=== PATIENT | female | born 1970 | race Caucasian/White ===

== ENCOUNTER → 2019-01-09 09:24 | Outpatient (CLI) | payer OTHER, SELFPAY ==
--- NOTE | 2019-01-09 09:32 | US_ITS ---
STUDY: THYROID ULTRASOUND REASON FOR EXAM: Female, 48 years old. Abnormal TSH TECHNIQUE: Ultrasound evaluation of the thyroid was performed with real-time and static scott-scale imaging. COMPARISON: None. FINDINGS: RIGHT LOBE: The right lobe of the thyroid gland measures 5.3 x 1.5 x 1.5 cm. There is a homogeneous echotexture. Is a 4 pole complex cystic nodules with solid component measuring 4 x 2 x 3 mm. Another complex cystic nodule with solid component is noted in the medial lower pole measuring 4 x 3 x 3 mm. LEFT LOBE: The left lobe of the thyroid gland measures 4.8 x 1.4 x 1.3 cm. There is a homogeneous echotexture. There are no demonstrated solid, cystic or complex lesions. ISTHMUS: The isthmus measures 4 mm . The regional lymph nodes are normal. US/Thyroid IMPRESSION: Small complex right thyroid nodules. Electronically Signed: Tian Goodman DO at 20:03 EDT Tel [phone], Service support ,
== END ==
PROVIDERS: Family Provider Internal Medicine; PCP Internal Medicine; Referring Provider Internal Medicine; Visit Provider Internal Medicine
DX: R79.89 Other specified abnormal findings of blood chemistry (principal)
CPT/HCPCS: 76536

== ENCOUNTER → 2019-01-28 | Outpatient (CLI) | payer OTHER, SELFPAY ==
--- NOTE | 2019-01-28 09:10 | NM_ITS ---
CLINICAL: 48-year-old female with reported history of thyroid nodularity and apparent clinical thyrotoxicosis. I-123 THYROID UPTAKE and SCAN COMPARISON: Thyroid ultrasound report 01/09/2019 FINDINGS: The patient was administered a 307 uCi I-123 capsule by mouth. The 4-hour I-123 radioactive iodine thyroidal uptake was calculated to be 1.6 % (normal 5 to 25 %). The 24-hour I-123 radioactive iodine thyroidal uptake was calculated to be 0.9 % (normal 5 to 40 %). The I-123 thyroid scan demonstrates minimal radiopharmaceutical concentration noted in the anterior neck, thyroid bed commensurate with the calculated iodine uptake values. NM/Thyroid Uptake Single or Mult IMPRESSION: 1. ABNORMAL DECREASED 4- and 24-hour I-123 radioactive iodine thyroidal uptakes. 2. The I-123 thyroid scan in conjunction with a calculated iodine uptake values and apparent clinical hyperthyroidism is most consistent with the injurious phase of subacute or potentially chronic lymphocytic thyroiditis. (Ivonne et al, Endocrinol Rev 1: 411, 1980). Electronically Signed: Jonathan Chacon DO at 23:03 EDT Tel , Service support ,
== END | disposition home or self-care (01) ==
LOC: NM 08:38
PROVIDERS: Family Provider Internal Medicine; PCP Internal Medicine; Referring Provider Internal Medicine Endocrinology, Diabetes & Metabolism; Visit Provider Internal Medicine Endocrinology, Diabetes & Metabolism
DX: E05.00 Thyrotoxicosis with diffuse goiter without thyrotoxic crisis or storm (principal)
CPT/HCPCS: 78012; A9516

== ENCOUNTER → 2019-02-20 13:48 | Outpatient (CLI) | payer OTHER, SELFPAY ==
--- NOTE | 2019-02-20 13:53 | ECHOD_ITS ---
Reason For Study: HEART MURMUR Procedure This was a 2D Doppler, Color Flow transthoracic echocardiogram. Exam performed in department. Left Ventricle Normal size and thickness. Left ventricular systolic function is normal. The estimated ejection fraction is 65 %. No evidence for diastolic dysfunction. No regional wall motion abnormalities noted. Right Ventricle Normal RV size. Normal systolic function. Atria Normal left atrium. Normal right atrium. No doppler evidence for ASD. Mitral Valve There is no mitral valve stenosis. No mitral valve insufficiency. Tricuspid Valve There is no tricuspid stenosis. Trivial tricuspid valve insufficiency. Normal pulmonary artery pressure. Aortic Valve Trisinus/trileaflet aortic valve. There is no aortic stenosis. No aortic valve insufficiency. Pulmonic Valve There is no pulmonic valvular stenosis. No pulmonic valve insufficiency. Great Vessels Normal aortic root. Pericardium/Pleural No pericardial effusion. MMode/2D Measurements & Calculations LVIDd: 4.1 cm IVSd: 0.70 cm Ao root diam: 2.6 cm LVIDs: 2.8 cm LVPWd: 0.84 cm RVDd: 3.1 cm FS: 31.9 % LAV(MOD-bp): 27.1 ml LVAd ap4: 24.2 cm2 SV(MOD-sp4): 41.0 ml LAV(MOD-bp) Indexed: 16.2 ml/m2 EDV(MOD-sp4): 69.7 ml LAV(MOD-sp2): 28.0 ml EDV(sp4-el): 71.5 ml LAV(MOD-sp4): 23.9 ml LVAs ap4: 13.6 cm2 ESV(MOD-sp4): 28.7 ml ESV(sp4-el): 27.4 ml EF(MOD-sp4): 58.8 % EF(sp4-el): 61.7 % SV(sp4-el): 44.1 ml LA A4 area: 11.3 cm2 LA dimension(2D): 2.5 cm RA A4 area: 10.3 cm2 Time Measurements MV dec time: 0.20 sec Doppler Measurements & Calculations MV E max martín: 80.1 cm/sec Lat Peak E' Amrtín: 14.3 cm/sec Med Peak E' Martín: 9.4 cm/sec MV A max martín: 72.5 cm/sec E/E' lat: 5.6 E/E' med: 8.5 MV E/A: 1.1 Ao V2 max: 148.6 cm/sec LV V1 max: 113.4 cm/sec PA V2 max: 119.6 cm/sec Ao max P.8 mmHg LV V1 max P.1 mmHg TR max martín: 242.4 cm/sec TR max P.5 mmHg Interpretation Summary Left ventricular systolic function is normal. The estimated ejection fraction is 65 %. No evidence for diastolic dysfunction. Trivial tricuspid valve insufficiency. Normal pulmonary artery pressure. Ordering Physician: Chrissy Clements Referring Physician: Chrissy Clements Performed By: Kymberly Bradley RDCS
== END ==
PROVIDERS: Family Provider Internal Medicine; PCP Internal Medicine; Referring Provider Internal Medicine; Visit Provider Internal Medicine
DX: R01.1 Cardiac murmur, unspecified (principal)
CPT/HCPCS: 93306

== ENCOUNTER → 2019-05-23 16:10 | Outpatient (CLI) | payer OTHER, SELFPAY | PROVIDERS: Family Provider Internal Medicine; PCP Internal Medicine; Referring Provider Otolaryngology Otolaryngology/Facial Plastic Surgery; Visit Provider Otolaryngology Otolaryngology/Facial Plastic Surgery | DX: J02.9 Acute pharyngitis, unspecified (principal) | CPT/HCPCS: 87070 ==

== ENCOUNTER → 2019-07-01 11:23 | Outpatient (CLI) | payer OTHER, SELFPAY ==
--- NOTE | 2019-07-01 11:29 | US_ITS ---
STUDY: THYROID ULTRASOUND REASON FOR EXAM: Female, 48 years old. Thyroid nodules TECHNIQUE: Ultrasound evaluation of the thyroid was performed with real-time and static scott-scale imaging. COMPARISON: 01/09/2019 FINDINGS: RIGHT LOBE: The right lobe of the thyroid gland measures 4.9 x 1.1 x 1.0 cm. There is a homogeneous echotexture. There is a 0.4 x 0.3 cm solid and cystic nodule in the upper pole of the right lobe and a 0.5 x 0.4 cm solid nodule in the lower pole. These are stable when compared with the prior exam. There are no new nodules identified. LEFT LOBE: The left lobe of the thyroid gland measures 4.5 x 1.2 x 0.9 cm. There is a homogeneous echotexture. There are no demonstrated solid, cystic or complex lesions. ISTHMUS: The isthmus measures 4 mm. The regional lymph nodes are normal. US/Thyroid IMPRESSION: Stable subcentimeter nodules in the right lobe of the thyroid. Otherwise, unremarkable exam. Electronically Signed: Heriberto Benitez, at 15:04 EST Tel , Service support ,
== END ==
PROVIDERS: Family Provider Internal Medicine; PCP Internal Medicine; Referring Provider Internal Medicine; Visit Provider Internal Medicine
DX: E04.1 Nontoxic single thyroid nodule (principal)
CPT/HCPCS: 76536

== ENCOUNTER → 2019-07-15 12:23 | Outpatient (CLI) | payer OTHER, SELFPAY ==
--- NOTE | 2019-07-15 12:27 | US_ITS ---
STUDY: RENAL ULTRASOUND - COMPLETE REASON FOR EXAM: Female, 48 years old. Hematuria, history of stones TECHNIQUE: Ultrasound evaluation of the kidneys was performed with real-time and static hernandez-scale imaging. COMPARISON: None. FINDINGS: RIGHT KIDNEY: Normal location of the right kidney, which is normal in size. The right kidney measures 11.3 x 5.3 x 3.9 cm. There is a normal cortex of the right kidney. The renal cortex measures 1.2 cm. There is no right renal mass or cyst. There is a 2 mm right renal calculus. There is a mild right hydronephrosis. DISTAL RIGHT URETER: There is non-visualization of the distal right ureter. There is no demonstrated right ureterovesical junction calculus. There is a visualized right ureteral jet. LEFT KIDNEY: Normal location of the left kidney, which is normal in size. The left kidney measures 12.8 x 4.5 x 4.1 cm. There is a normal cortex of the left kidney. The renal cortex measures 1.6 cm. There is a 7 x 9 x 8 mm cyst. There is a 4 mm nonobstructing calculus. There is no left hydronephrosis. DISTAL LEFT URETER: There is non-visualization of the distal left ureter. There is no demonstrated left ureterovesical junction calculus. There is a visualized left ureteral jet. BLADDER: The distended urinary bladder has a volume of 752 ml. . Urinary bladder wall thickness is 3 mm. There is no demonstrated mass within the urinary bladder. There are no demonstrated bladder calculi. US/Kidney and Bladder IMPRESSION: Nonobstructing bilateral nephrolithiasis. Subcentimeter left renal cyst. Mild right hydronephrosis. Electronically Signed: Nicholas Russell MD at 21:59 EST , Service support ,
== END ==
PROVIDERS: Family Provider Internal Medicine; PCP Internal Medicine; Referring Provider Nurse Practitioner; Visit Provider Nurse Practitioner
DX: R31.9 Hematuria, unspecified (principal)
CPT/HCPCS: 76770

== ENCOUNTER → 2019-08-04 06:57 | Outpatient (CLI) | payer OTHER, SELFPAY ==
--- NOTE | 2019-08-04 06:59 | CT_ITS ---
STUDY: CT ABDOMEN AND PELVIS WITH AND WITHOUT CONTRAST REASON FOR EXAM: Female, 48 years old. INTERMITTENT RLQ PAIN X7 WEEKS -- KNOWN KIDNEY STONES -- RIGHT KIDNEY SWOLLEN-PER PT -- HX-DIVERTICULITIS RADIATION DOSAGE (If Supplied By Facility): CTDIvol = ( 10.23 ) mGy, DLP = ( 931.93 ) mGycm TECHNIQUE: Transaxial images were obtained from the dome of the diaphragm to the symphysis pubis without oral contrast. 100cc isovue 300 was administered. Sagittal and coronal images were reconstructed. Individualized dose optimization techniques were used for this CT. COMPARISON: 06/22/2017 FINDINGS: The visualized lung bases are unremarkable. The visualized portions of the heart are within normal limits. Normal liver. Normal gallbladder and extrahepatic biliary system. Normal spleen. Normal pancreas. Normal bilateral adrenal glands. Bilateral nonobstructing renal stones. No hydronephrosis, ureteral stone, or ureteral dilatation. Normal visualized stomach. Normal small intestine. There are multiple colonic diverticula consistent with diverticulosis. The appendix is visualized and appears normal. Normal abdominal aorta. Normal inferior vena cava. Normal retroperitoneum. Normal urinary bladder. Normal abdominal wall. Normal osseous structures. CT/CT Abd/Pelvis W/WO Contrast IMPRESSION: Bilateral nonobstructing renal stones. Electronically Signed: Jonathan Knight MD at 16:51 EST Tel , Service support ,
== END ==
PROVIDERS: Family Provider Internal Medicine; PCP Internal Medicine; Referring Provider Nurse Practitioner Adult Health; Visit Provider Nurse Practitioner Adult Health
DX: R31.0 Gross hematuria (principal)
CPT/HCPCS: 74178; Q9967

== ENCOUNTER → 2019-10-25 08:58 | Outpatient (CLI) | payer OTHER, SELFPAY ==
--- NOTE | 2019-10-25 06:13 | CT_ITS ---
STUDY: CT MAXILLOFACIAL SINUSES REASON FOR EXAM: Female, 49 years old. UPPER TEETH SENSITIVITY, BILAT FACIAL PRESSURE/PAIN, MERRITT, HAD SHINGLES IN EAR, FEBRUARY 2019 HAD JAW SURG RADIATION DOSAGE (If Supplied By Facility): CTDIvol = ( 33.06 ) mGy, DLP = ( 784.26 ) mGycm TECHNIQUE: The patient was scanned in a multi detector CT scanner. High resolution axial imaging was performed without the administration of intravenous contrast material. Sagittal and coronal images were reconstructed. Individualized dose optimization techniques were used for this CT. COMPARISON: None. FINDINGS: FRONTAL SINUSES: Normal aeration, without mucosal inflammatory disease. ETHMOIDAL SINUSES: Normal aeration, without mucosal inflammatory disease. MAXILLARY SINUSES: Normal aeration, without mucosal inflammatory disease. SPHENOIDAL SINUSES: Normal aeration, without mucosal inflammatory disease. There is patency of the bilateral maxillary infundibuli with normal uncinate processes, ethmoid bullae, and hiatus semilunaris. Normal bilateral middle turbinates. Normal bilateral inferior turbinates. Normal midline nasal septum. There is patency of the bilateral nasal airways. The visualized osseous structures are normal. The visualized bilateral orbital contents are normal. CT/Sinus/Facial Bone IMPRESSION: Normal CT examination of the maxillofacial sinuses. Electronically Signed: Tian Goodman DO at 11:27 EDT Tel [phone], Service support ,
== END ==
PROVIDERS: PCP Internal Medicine; Referring Provider Otolaryngology; Visit Provider Otolaryngology
DX: J32.9 Chronic sinusitis, unspecified (principal)
CPT/HCPCS: 70486

== ENCOUNTER → 2020-04-22 14:16 | Outpatient (CLI) | payer OTHER, SELFPAY ==
--- NOTE | 2020-04-22 14:21 | US_ITS ---
STUDY: ULTRASOUND OF THE FEMALE PELVIS - LIMITED REASON FOR EXAM: Female, 49 years old RLQ PAIN TECHNIQUE: Transabdominal real-time exam with scott scale image documentation. TECHNICAL QUALITY: Adequate. Abdomen and pelvic CT exam of 08/04/2019 COMPARISON: None. FINDINGS: Status post hysterectomy. The right ovary measures 2.6 x 1.4 x 2.1 cm. There is no right ovarian cyst or ovarian mass. There is no visualized right adnexal mass or complex lesion. There is normal arterial and normal venous vascularity. The left ovary measures 2.3 x 2.1 x 1.9 cm. There is no left ovarian cyst or ovarian mass. There is no visualized left adnexal mass or complex lesion. There is normal arterial and normal venous vascularity. There is no fluid in the cul-de-sac. US/Transvaginal Non- IMPRESSION: Normal ovaries bilaterally without adnexal masses or free fluid of the pelvis. Status post hysterectomy. Electronically Signed: Lizet Issa MD at 23:58 EDT , Service support ,
== END ==
PROVIDERS: PCP Internal Medicine; Referring Provider Nurse Practitioner; Visit Provider Nurse Practitioner
DX: R10.31 Right lower quadrant pain (principal)
CPT/HCPCS: 76830; 93976

== ENCOUNTER → 2020-05-15 10:18 | Outpatient (CLI) | payer OTHER, SELFPAY ==
--- NOTE | 2020-05-15 10:29 | US_ITS ---
STUDY: THYROID ULTRASOUND REASON FOR EXAM: Female, 49 years old. NODULES TECHNIQUE: Ultrasound evaluation of the thyroid was performed with real-time and static scott-scale imaging. COMPARISON: None. FINDINGS: RIGHT LOBE: The right lobe of the thyroid gland measures 5.2 x 1.1 x 1.3 cm. There is a homogeneous echotexture. Anechoic cyst of the right thyroid lobe measures 4 mm. Solid and cystic nodule of the inferior right thyroid lobe measures 5 mm, stable. LEFT LOBE: The left lobe of the thyroid gland measures 4.8 x 1.3 x 1.1 cm. There is a homogeneous echotexture. There are no demonstrated solid, cystic or complex lesions. ISTHMUS: The isthmus measures 2 mm. The regional lymph nodes are normal. US/Thyroid IMPRESSION: 1. No new or enlarging thyroid nodule. 2. Stable subcentimeter nodules/cysts of the right thyroid lobe. Electronically Signed: Torsten Izquierdo MD (Brooks) at 13:20 EDT , Service support ,
== END ==
LOC: OPUS 10:21 → US 10:23
PROVIDERS: PCP Internal Medicine; Referring Provider Nurse Practitioner; Visit Provider Nurse Practitioner
DX: E04.1 Nontoxic single thyroid nodule (principal); R10.31 Right lower quadrant pain
CPT/HCPCS: 76536

== ENCOUNTER → 2020-12-09 10:12 | Outpatient (CLI) | payer OTHER, SELFPAY ==
--- NOTE | 2020-12-09 10:35 | BD_ITS ---
STUDY: DUAL ENERGY X-RAY ABSORPTIOMETRY / DXA REASON FOR EXAM: Female, 50 years old. 627.8Menopausal postmenopausal BONE DENSITY REASON FOR EXAM TECHNIQUE: Bone Mineral Density (BMD) measurements of lumbar spine and bilateral hips were obtained. COMPARISON: None. FINDINGS: Lumbar Spine (L1-L4): g/cm2 (0.884) / T-score (-2.5) / Z-score (-2.0) Findings are suggestive of osteopenia with a high fracture risk. Left Femur Total: g/cm2 (0.732) / T-score (-2.2) / Z-score (-1.7) Left Femoral Neck: g/cm2 (0.717) / T-score (-2.3) / Z-score (-1.5) Right Femur Total: g/cm2 (0.693) / T-score (-2.5) / Z-score (-2.0) Right Femoral Neck: g/cm2 (0.754) / T-score (-2.0) / Z-score (-1.2) BD/Dexa Bone Density Study IMPRESSION: The patient is considered osteopenic as outlined below according to World Frantz Organization (WHO) criteria with a high fracture risk. Reference Information: The T-score is the number of standard deviations above or below the standard which is normal for young adults at their peak bone mineral density. The World Health Organization (WHO) interprets the T-scores as follows: Above -1 Normal bone density Between -1 and -2.5 Osteopenia Equal to / or below -2.5 Osteoporosis As a practical clinical guideline, osteopenia may be graded as follows: Mild -1 through -1.5 Moderate -1.6 through -2.0 Severe -2.1 through -2.4 The Z-score is the number of standard deviations above or below age-matched controls. A Z-score of less than -1.5 would be considered abnormal. References: 1. NIH Osteoporosis and Related Bone Diseases www osteo.org 2. International Society for Clinical Densitometry www iscd.org 3. National Osteoporosis Foundation www nof.org Electronically Signed: Ranjeet Abdi MD at 15:25 EDT , Service support ,
--- NOTE | 2020-12-09 11:02 | BI_ITS ---
MAMMOGRAPHY - BILATERAL SCREENING REASON FOR EXAM: Female, 50 years old. Routine annual screening examination. PERTINENT HISTORY: Mother with breast cancer. Grandmother with breast cancer. TECHNIQUE: Digital bilateral breast grzegorz (3D mammographic acquisition) in the CC and MLO projections. 2-D mediolateral oblique (MLO) and craniocaudad (CC) views of both breasts were obtained. CAD: Full Field Digital Mammography with Computer Added Detection was performed. COMPARISON: Comparison is made with prior study dated 12/17/2015 and 10/07/2014. FINDINGS: Breast Composition: The breasts are extremely dense, which lowers the sensitivity of mammography. There are no dominant masses or suspicious calcifications. No other significant abnormalities are identified. There has been no significant change since the prior study. BI/SCRN MAMM (CAD)W/GRZEGORZ BILAT IMPRESSION: Stable bilateral screening mammogram. Yearly follow-up mammogram recommended. (A) ASSESSMENT CATEGORY: BIRADS Category 1: Negative. A letter regarding these results will be sent to the patient by the facility within 30 days. Approximately 10% of breast cancers are not detected by mammography. A normal mammogram should not delay biopsy of a clinically suspicious abnormality. [id number] Electronically Signed: Ranjeet Abdi MD at 8:55 EDT , Service support ,
== END ==
PROVIDERS: PCP Internal Medicine; Referring Provider Nurse Practitioner; Visit Provider Nurse Practitioner
DX: Z12.31 Encounter for screening mammogram for malignant neoplasm of breast (principal); Z78.0 Asymptomatic menopausal state
CPT/HCPCS: 77063; 77067; 77080

== ENCOUNTER → 2021-03-07 15:11 | Outpatient (CLI) | payer OTHER, SELFPAY ==
--- NOTE | 2021-03-07 15:33 | RAD_ITS ---
EXAM: XR CHEST, 2 VIEWS : 1970 CLINICAL INDICATION: HYPERCALCEMIA TECHNIQUE: Frontal and lateral views of the chest. This report was created using [email or web address] report generation technology. COMPARISON: None. FINDINGS: LUNGS AND PLEURAL SPACES: Unremarkable. No consolidation or edema. No pneumothorax. No effusion. HEART: Unremarkable. Cardiac silhouette not enlarged. MEDIASTINUM: Central airways and mediastinal contour are unremarkable. BONES/JOINTS: Unremarkable. SOFT TISSUES: Unremarkable. RAD/Chest PA and Lateral IMPRESSION: No radiographic evidence of acute cardiopulmonary disease. at 0754 Reported and signed by: José Marrufo MD Electronically Signed: José Marrufo MD at 7:54 EDT Tel , Service support ,
[2021-03-07 16:11] LABS: Hemoglobin 14.2 g/dL (12.0-15.0); Mean Corp Hgb Conc 33.8 g/dL (32-36); Mean Corpuscular Hgb 32.2 pg (27.0-32.0); Mean Corpuscular Volume 95.2 fL (81-99); Mean Platelet Vol. 9.1 fl (6.2-12.0); Platelet Count 277 K/mm3 (150-450); RBC Distribution Width CV 13.1 % (11.6-14.6); RBC Distribution Width SD 46.1 fl (35.1-43.9); Red Blood Count 4.41 M/mm3 (4.2-5.4); White Blood Count 5.6 K/mm3 (4.4-11.0)
[2021-03-07 16:48] LABS: Progesterone Level 11.82 ng/mL (See Comment); Vitamin D,25 Hydroxy 38.9 ng/mL
[2021-03-07 16:52] LABS: Calcium,Total 9.9 mg/dL (8.5-10.1); Estradiol 15.8 pg/mL; Follicle Stimulating Hormone 99.8 mIU/mL; Free T3 2.5 pg/mL (2.18-3.98); Thyroid Stim Hormone (TSH) 1.76 uIU/mL (0.358-3.74)
== END ==
PROVIDERS: PCP Internal Medicine
DX: N95.1 Menopausal and female climacteric states (principal); E03.8 Other specified hypothyroidism; E83.52 Hypercalcemia; E55.9 Vitamin D deficiency, unspecified
CPT/HCPCS: 36415; 71046; 82306; 82310; 82330; 82627; 82670; 83001; 84144; 84403; 84443; 84481; 85027; 82626

== ENCOUNTER → 2021-04-14 13:34 | Outpatient (CLI) | payer OTHER, SELFPAY ==
[2021-04-14 15:35] LABS: Progesterone Level 34.67 ng/mL (See Comment)
[2021-04-16 11:21] LABS: DHEA Sulfate 36.9 ug/dL (41.2-243.7)
== END ==
PROVIDERS: PCP Internal Medicine
DX: E28.8 Other ovarian dysfunction (principal); R53.81 Other malaise
CPT/HCPCS: 36415; 82627; 82670; 84144; 84403; 82626

== ENCOUNTER → 2021-08-12 | Outpatient (CLI) | payer OTHER, SELFPAY | END | disposition home or self-care (01) | PROVIDERS: PCP Internal Medicine; Visit Provider Otolaryngology | DX: J02.9 Acute pharyngitis, unspecified (principal) | CPT/HCPCS: 87070; 87077 ==

== ENCOUNTER 2021-08-30 08:07 | Outpatient (CLI) | payer OTHER, SELFPAY ==
--- NOTE | 2021-08-30 08:14 | CT_ITS ---
STUDY: CT MAXILLOFACIAL SINUSES REASON FOR EXAM: Female, 50 years old. CHRONIC SINUSITIS X 2 YEARS RADIATION DOSAGE (If Supplied By Facility): CTDIvol = ( 28.14 ) mGy, DLP = ( 739.16 ) mGycm TECHNIQUE: The patient was scanned in a multi detector CT scanner. High resolution axial imaging was performed without the administration of intravenous contrast material. Sagittal and coronal images were reconstructed. Individualized dose optimization techniques were used for this CT. COMPARISON: Comparison is made with prior examination dated 10/25/2019. FINDINGS: FRONTAL SINUSES: Normal aeration, without mucosal inflammatory disease. ETHMOIDAL SINUSES: Normal aeration, without mucosal inflammatory disease. MAXILLARY SINUSES: Normal aeration, without mucosal inflammatory disease. SPHENOIDAL SINUSES: Normal aeration, without mucosal inflammatory disease. There is patency of the bilateral maxillary infundibuli with normal uncinate processes, ethmoid bullae, and hiatus semilunaris. Normal bilateral middle turbinates. Normal bilateral inferior turbinates. Normal midline nasal septum. There is patency of the bilateral nasal airways. The visualized osseous structures are normal. The visualized bilateral orbital contents are normal. CT/Sinus/Facial Bone IMPRESSION: Normal CT examination of the maxillofacial sinuses. Electronically Signed: Ranjeet Abdi MD at 8:44 EST , Service support ,
== END 2021-08-30 23:59 | disposition short-term general hospital (02) ==
PROVIDERS: PCP Internal Medicine; Referring Provider Otolaryngology; Visit Provider Otolaryngology
DX: J32.8 Other chronic sinusitis (principal)
CPT/HCPCS: 70486

== ENCOUNTER → 2022-03-23 | Outpatient (CLI) | payer OTHER, SELFPAY ==
--- NOTE | 2022-03-23 12:06 | US_ITS ---
STUDY: THYROID ULTRASOUND REASON FOR EXAM: Female, 51 years old. THYROID NODULE TECHNIQUE: Ultrasound evaluation of the thyroid was performed with real-time and static scott-scale imaging. COMPARISON: Comparison is made with prior study dated 05/15/2020. FINDINGS: RIGHT LOBE: The right lobe of the thyroid gland is enlarged and measures 5.5 cm x 1.4 cm x 1.1 cm. There is a homogeneous echotexture. There is a 5 mm x 5 mm x 4 mm hypoechoic solid nodule in the midpole of the right lobe. There is also evidence of a 4 mm x 4 mm x 2 mm hypoechoic solid nodule in the lower pole. LEFT LOBE: The left lobe of the thyroid gland measures 4.6 cm x 1.1 cm x 1.0 cm. There is a homogeneous echotexture. There are no demonstrated solid, cystic or complex lesions. ISTHMUS: The isthmus measures 2 mm. The regional lymph nodes are normal. US/Thyroid IMPRESSION: Mild enlargement of the right lobe of the thyroid. 5 mm x 5 mm x 4 mm well-defined hypoechoic nodule in the midpole. Electronically Signed: Ranjeet Abdi MD at 13:03 EDT ,
== END | disposition home or self-care (01) ==
PROVIDERS: PCP Internal Medicine; Visit Provider Internal Medicine
DX: E04.1 Nontoxic single thyroid nodule (principal)
CPT/HCPCS: 76536

== ENCOUNTER → 2022-09-18 | Outpatient (CLI) | payer OTHER, SELFPAY ==
[2022-09-18 08:27] VITALS: BP 108/43; PULSE 78; RESP 16; O2SAT 100; BMI 19.5
[2022-09-18] MEDS: 0.9% NaCl Peripheral Flush Adult/Peds IV (08:36)
[2022-09-18] MEDS: Zoledronic Acid 5 MG 100 ML 300 MG IV (08:57)
[2022-09-18 09:22] VITALS: BP 99/59; PULSE 66; RESP 16; O2SAT 100
== END | disposition home or self-care (01) ==
PROVIDERS: PCP Internal Medicine; Referring Provider Internal Medicine Endocrinology, Diabetes & Metabolism; Visit Provider Internal Medicine Endocrinology, Diabetes & Metabolism
DX: M81.0 Age-related osteoporosis without current pathological fracture (principal)
CPT/HCPCS: 96365; A4216; J3489

== ENCOUNTER → 2022-10-12 | Outpatient (CLI) | payer OTHER, SELFPAY ==
--- NOTE | 2022-10-12 11:07 | ECHOD_ITS ---
Reason For Study: Murmur Procedure This was a 2D Doppler, Color Flow transthoracic echocardiogram. Left Ventricle Normal LV size. The estimated ejection fraction is 70 %. No evidence for diastolic dysfunction. No regional wall motion abnormalities noted. Right Ventricle Normal RV size. Normal systolic function. Atria Normal left atrium. Normal right atrium. No doppler evidence for ASD. Mitral Valve There is no mitral valve stenosis. Trivial mitral valve insufficiency. Tricuspid Valve There is no tricuspid stenosis. Trivial tricuspid valve insufficiency. Pulmonary artery systolic pressure is 25 mmHg. Aortic Valve Trisinus/trileaflet aortic valve. There is no aortic stenosis. No aortic valve insufficiency. Pulmonic Valve There is no pulmonic valvular stenosis. No pulmonic valve insufficiency. Great Vessels Normal aortic root. Pericardium/Pleural No pericardial effusion. MMode/2D Measurements & Calculations LVIDd: 4.3 cm IVSd: 0.70 cm LA dimension: 3.7 cm LVIDs: 2.3 cm LVPWd: 0.77 cm RVDd: 3.2 cm FS: 47.4 % LAV(MOD-bp): 36.2 ml LA A4 area: 13.5 cm2 RA A4 area: 13.5 cm2 LAV(MOD-bp) Indexed: 21.2 ml/m2 LAV(MOD-sp2): 33.7 ml LAV(MOD-sp4): 34.4 ml Time Measurements MV dec time: 0.20 sec Doppler Measurements & Calculations MV E max martín: 76.3 cm/sec Lat Peak E' Martín: 15.3 cm/sec Med Peak E' Martín: 14.7 cm/sec MV A max martín: 77.7 cm/sec E/E' lat: 5.0 E/E' med: 5.2 MV E/A: 0.98 MV V2 max: 83.4 cm/sec MV P1/2t max martín: 83.4 cm/sec Ao V2 max: 160.3 cm/sec MV max P.8 mmHg MV P1/2t: 66.1 msec Ao max P.3 mmHg MV V2 mean: 45.8 cm/sec MV dec slope: 369.3 cm/sec2 Ao V2 mean: 108.6 cm/sec MV mean P.00 mmHg MVA(P1/2t): 3.3 cm2 Ao mean P.6 mmHg MV V2 VTI: 26.5 cm Ao V2 VTI: 35.2 cm AV (velocity ratio): 0.77 LV V1 max: 128.1 cm/sec PA V2 max: 88.6 cm/sec TR max martín: 220.1 cm/sec LV V1 max P.6 mmHg TR max P.4 mmHg LV V1 mean P.3 mmHg LV V1 mean: 83.4 cm/sec LV V1 VTI: 27.1 cm ECHO/Echo Complete Interpretation Summary The estimated ejection fraction is 70 %. No evidence for diastolic dysfunction. Trivial mitral valve insufficiency. Ordering Physician: IBAN MAXWELL Referring Physician: Chrissy Clements M.D. Performed By: Shakeel Kirk RCS
== END | disposition home or self-care (01) ==
PROVIDERS: PCP Internal Medicine
DX: R01.1 Cardiac murmur, unspecified (principal)
CPT/HCPCS: 93306

== ENCOUNTER → 2023-06-25 | Outpatient (CLI) | payer OTHER, SELFPAY ==
--- NOTE | 2023-06-25 13:10 | RAD_ITS ---
STUDY: X-RAY CHEST REASON FOR EXAM: Female, 52 years old. cough TECHNIQUE: PA and lateral views of the chest. COMPARISON: 03/07/2021. FINDINGS: Round structure in the symmetric fashion likely representing nipple shadows noted, remainder of the lungs are clear and expanded. There is no demonstrated pleural abnormality. Normal size heart. Normal mediastinum and princess. Normal visualized pulmonary arteries. Normal visualized aortic arch and descending thoracic aorta. Normal visualized thoracic spine. Normal visualized ribs, clavicles, and shoulders. There is no demonstrated abnormality of the visualized soft tissue structures of the upper abdomen. RAD/Chest PA and Lateral IMPRESSION: Nodularities over the mid lower lungs likely nipple shadows. If indicated, this can be confirmed with frontal view of the chest with nipple markers. Otherwise normal chest x-ray. Electronically Signed: Marie Manzo MD at 20:32 EST ,
== END | disposition home or self-care (01) ==
LOC: RAD 13:06
PROVIDERS: PCP Internal Medicine; Referring Provider Internal Medicine; Visit Provider Internal Medicine
DX: R05.9 Cough, unspecified (principal)
CPT/HCPCS: 71046

== ENCOUNTER → 2023-06-25 | Outpatient (CLI) | payer OTHER, SELFPAY ==
--- NOTE | 2023-06-25 13:32 | BI_ITS ---
MAMMOGRAPHY - BILATERAL SCREENING REASON FOR EXAM: Female, 52 years old. Routine annual screening examination. PERTINENT HISTORY: Mother with breast cancer. Grandmother with breast cancer. TECHNIQUE: Digital bilateral breast grzegorz (3D mammographic acquisition) in the CC and MLO projections. 2-D mediolateral oblique (MLO) and craniocaudad (CC) views of both breasts were obtained. CAD: Full Field Digital Mammography with Computer Added Detection was performed. COMPARISON: Comparison is made with prior examination December 09, 2020 and December 17, 2015. FINDINGS: Breast Composition: The breasts are extremely dense, which lowers the sensitivity of mammography. There are no dominant masses or suspicious calcifications. No other significant abnormalities are identified. There has been no significant change since the prior study. BI/SCRN MAMM (CAD)W/GRZEGORZ BILAT IMPRESSION: Stable bilateral screening mammogram. Yearly follow-up mammogram recommended. (A) ASSESSMENT CATEGORY: BIRADS Category 1: Negative. A letter regarding these results will be sent to the patient by the facility within 30 days. Approximately 10% of breast cancers are not detected by mammography. A normal mammogram should not delay biopsy of a clinically suspicious abnormality. [id number] Electronically Signed: Ranjeet Abdi MD at 14:25 EST ,
== END | disposition home or self-care (01) ==
LOC: OPBI 13:31
PROVIDERS: PCP Internal Medicine; Referring Provider Internal Medicine; Visit Provider Internal Medicine
DX: Z12.31 Encounter for screening mammogram for malignant neoplasm of breast (principal)
CPT/HCPCS: 77063; 77067

== ENCOUNTER → 2023-10-02 | Outpatient (CLI) | payer OTHER, SELFPAY ==
--- NOTE | 2023-10-02 08:23 | US_ITS ---
STUDY: ABDOMINAL ULTRASOUND - RIGHT UPPER QUADRANT REASON FOR VISIT: Female, 53 years old GERD TECHNIQUE: Ultrasound evaluation of the right upper quadrant was performed with real-time and static scott-scale imaging. TECHNICAL QUALITY: Adequate. COMPARISON: Comparison is made with prior study dated January 19, 2012. FINDINGS: Liver: The liver measures 17.6 cm. There is normal echogenicity of the liver. The bile ducts are within normal limits. There is hepatic color flow. The direction of portal flow is hepatopetal. There is no demonstrated mass lesion. Gallbladder: Normal distended gallbladder. The gallbladder wall measures 1.2 mm. There is a negative sonographic Rodriguez''s sign. There is no pericholecystic fluid. There are no gallstones. Common Bile Duct (C.B.D.): The common bile duct measures 3.9 mm. Pancreas: Normal size of the head, body and tail of the pancreas. There is normal echogenicity of the pancreas. There is no demonstrated pancreatic mass or cyst. Right Kidney: Normal size of the right kidney. The right kidney measures 11.8 cm x 4.6 cm x 3.7 cm. Normal renal cortex. The right cortex measures 1.0 cm. There is no demonstrated renal mass or cyst. There is no right hydronephrosis. US/Abdomen Limited IMPRESSION: Normal right upper quadrant ultrasound examination. Electronically Signed: Ranjeet Abdi MD at 10:01 EST ,
== END | disposition home or self-care (01) ==
LOC: US 08:22
PROVIDERS: PCP Internal Medicine
DX: K31.89 Other diseases of stomach and duodenum (principal); K21.9 Gastro-esophageal reflux disease without esophagitis
CPT/HCPCS: 76705

== ENCOUNTER → 2023-11-06 | Outpatient (CLI) | payer OTHER, SELFPAY ==
--- NOTE | 2023-11-06 09:49 | NM_ITS ---
CLINICAL: 53-year-old female with history of gastroesophageal reflux disease. RADIONUCLIDE HEPATOBILIARY SCINTIGRAPHY COMPARISON: Previous CCK hepatobiliary scintigraphy study dated 09/07/2014 FINDINGS: Following the intravenous administration of 5.8 mCi of 99m Tc Mebrofenin, hepatobiliary images reveal: 1. Relatively prompt and homogeneous radiopharmaceutical concentration is noted by a normal sized liver. No parenchymal defects are identified. 2. Gallbladder activity is identified at 10 minutes post radiopharmaceutical administration. 3. Small intestinal tract is not visualized during 60 minutes of pre-CCK sequential imaging. Small bowel activity is identified following the administration of cholecystokinin. 4. Washout of the radiopharmaceutical by the hepatic parenchyma appears qualitatively normal. Cholecystokinin (0.02 ug/kg) was administered intravenously over a 30-minute period. The post CCK gallbladder ejection fraction calculated at 21 minutes following Cholecystokinin administration was noted to be 42.0 % (normal greater than 35%) compared to 64.9%. During 30 minutes of post CCK imaging, there is no scintigraphic evidence of reflux of the radiotracer into the common hepatic duct or refilling of the gallbladder. NM/Hepatobilliary Img w/Pharm Int IMPRESSION: 1. NORMAL 99m Tc Mebrofenin hepatobiliary imaging examination with Cholecystokinin. A. A gallbladder ejection fraction calculated to be greater than 35% following the administration of Cholecystokinin makes the probability of functional hepatobiliary disease (gallbladder and/or sphincter of Oddi dyskinesia) and/or organic hepatobiliary disease (chronic acalculous cholecystitis and/or cystic duct syndrome) to be low. (July Samaniego et al, Journal of Nuclear Medicine 32:1695, 1991). B. Overall compared to the examination. 09/07/2014, there is minimal interval change. Electronically Signed: Jonathan Chacon DO at 9:34 EDT ,
== END | disposition home or self-care (01) ==
LOC: NM 09:40
PROVIDERS: PCP Internal Medicine; Referring Provider Internal Medicine Gastroenterology
DX: K21.9 Gastro-esophageal reflux disease without esophagitis (principal); K31.89 Other diseases of stomach and duodenum
CPT/HCPCS: 78227; A9537; J2805

== ENCOUNTER → 2023-12-13 | Outpatient (CLI) | payer OTHER, SELFPAY ==
--- NOTE | 2023-12-13 08:29 | CT_ITS ---
STUDY: CT CHEST WITH CONTRAST REASON FOR EXAM: Female, 53 years old. PERSISTENT COUGH RADIATION DOSAGE (If Supplied By Facility): CTDIvol = ( 8.69 ) mGy, DLP = ( 174.63 ) mGycm TECHNIQUE: Transaxial imaging was performed following intravenous administration of IV 100mL Isovue-300. Multiplanar coronal and sagittal images were reformatted. Individualized dose optimization techniques were used for this CT. COMPARISON: Comparison is made with prior chest radiograph dated June 25, 2023. FINDINGS: CHEST The lungs are normal. There is no demonstrated pleural abnormality. Normal heart and pericardium. Normal mediastinum. Normal hilar regions. Normal unenhanced pulmonary arteries. Normal aorta arch and descending thoracic aorta. Normal osseous structures. There is no demonstrated abnormality of the visualized upper abdomen. CT/Chest WITH Contrast IMPRESSION: Normal enhanced CT chest T abdomen examination. Electronically Signed: Ranjeet Abdi MD at 15:33 EDT ,
[2023-12-13] MEDS: DiphenhydrAMINE 50 MG/ML Syringe IV (09:05)
[2023-12-13 09:11] VITALS: BP 114/72; PULSE 86; RESP 16; O2SAT 100; BMI 19.0
== END | disposition home or self-care (01) ==
PROVIDERS: PCP Internal Medicine; Referring Provider Internal Medicine; Visit Provider Internal Medicine
DX: R93.89 Abnormal findings on diagnostic imaging of other specified body structures (principal)
CPT/HCPCS: 71260; Q9967

== ENCOUNTER → 2025-08-10 | Outpatient (CLI) | payer OTHER, SELFPAY ==
[2025-08-10 11:31] LABS: Mucous, Urine 0 SEEN /hpf (<or=2+); Red Blood Cells-Urine 0 SEEN /hpf (0-5); Squamous Epithelial Cells - UA 0 SEEN /hpf (5-10)
[2025-08-10 15:08] LABS: Color, Urine Yellow (Yellow); Glucose, Dipstick Normal (Normal); Ketone-Dipstick Negative (Negative); Leukocyte Esterase-Dipstick Negative /ul (Negative); Nitrite-Dipstick Negative (Negative); Occult Blood-Urine Negative /ul (Negative); Protein-Dipstick Negative (Negative); Specific Gravity, Urine 1.005 (1.002-1.030); Urine Bilirubin Dipstick Negative (Negative)
[2025-08-10 15:13] LABS: Hematocrit 39.9 % (37-47); Hemoglobin 13.2 g/dL (12.0-15.0); Immature Granulocytes Count 0.010 X10^3/uL (0.0-0.0); Mean Corp Hgb Conc 33.1 g/dL (32-36); Mean Corpuscular Volume 96.6 fL (81-99); Mean Platelet Vol. 8.9 fl (6.2-12.0); NRBC Flagged by Analyzer 0 % (0-5); Platelet Count 285 K/mm3 (150-450); RBC Distribution Width CV 13.2 % (11.6-14.6); RBC Distribution Width SD 47.6 fl (35.1-43.9); Red Blood Count 4.13 M/mm3 (4.2-5.4); White Blood Count 5.6 K/mm3 (4.4-11.0)
[2025-08-10 15:21] LABS: Transitional Epithelial - Ur 0-5 SEEN /hpf (0-5)
[2025-08-10 15:29] LABS: AST(SGOT) 24 U/L (<=31); Alanine Aminotransfer ALT/SGPT 34 U/L (<=34); Albumin, Serum 4.7 g/dL (3.5-5.0); Alkaline Phosphatase 55 U/L (35-104); Anion Gap 10 (7-18); BUN 11 mg/dL (4-19); BUN/Creat Ratio 14.6 RATIO (10-20); Calcium,Total 9.2 mg/dL (7.6-11.0); Carbon Dioxide 26.8 mmol/L (20.0-29.0); Chloride 103 mmol/L (96-106); Globulin 2.1 g/dL (2.2-4.2); Glucose 90 mg/dL (70-99); Potassium 4.1 mmol/L (3.5-5.1)
== END | disposition home or self-care (01) ==
LOC: LABSPEC 11:29
PROVIDERS: PCP Internal Medicine; Referring Provider Internal Medicine; Visit Provider Internal Medicine
DX: R79.89 Other specified abnormal findings of blood chemistry (principal)
CPT/HCPCS: 80053; 81001; 85025; 87086; 87088